=== PATIENT | female | born 1980 | race Caucasian/White ===

== ENCOUNTER 2016-04-02 16:42 | Inpatient (IN) ==
--- NOTE | 2016-04-02 20:20 | General Surg History&Physical ---
Date of Encounter: 04/02/16 Time of Encounter: 20:00 History of Present Illness Chief complaint: Right upper quadrant abdominal pain 3 days; nausea & vomiting HPI: Ms. Henry is a 35 year old female transferred from [facility] after presenting there with a 3 day history right upper quadrant abdominal pain nausea and vomiting. Patient describes progressive pain for which the patient ultimately presented for further evaluation and care. CT completed presentation to the emergency department, showed increased density within the gallbladder and surrounding pericholecystic fluid with fluid in the right paracolic gutter and periportal edema. Findings are highly suspicious for acute cholecystitis prompting a surgical referral at [facility] [place]. Past medical history: thyroid disease Surgical history: , tubal ligation, thyroidectomy Allergies: penicillin Medications: Cyclobenzaprine 10 mg by mouth 3 times a day (prescribed 03/18/16) Meloxicam 7.5 mg by mouth daily (prescribed 03/18/16) Tramadol 50 mg by mouth 4 times a day when necessary pain (prescribed 03/18) These medications appears related to an ED presentation for burning discomfort left flank. This was not associated with any fevers, chills, nausea or vomiting. A CT of the abdomen/pelvis completed at that time was unremarkable. The current CT shows interval changes described above, predominately involving the gallbladder. Social history: G3, P3; every day smoker; [place] history of prescription drug abuse and opiate use Physical examination: overweight, age appropriate pateint in acute distress due to right upper quadrant pain. The patient has been afebrile, 98.3, pulse 88, respirations 18, blood pressure 116/76 Skin is warm, without obvious jaundice Lungs: Clear to auscultation Cardiac: Regular rate, no appreciable murmurs Abdomen: Obese, soft, with tenderness in the right upper quadrant but no discernible intra-abdominal masses. No rebound. Bowel sounds were hypoactive Extremities: No obvious clubbing cyanosis or edema Impression: A 5-year-old female transferred from [facility] after presenting there with 3 day history acute right upper quadrant abdominal pain with N/V. CT showed evidence suggestive acute cholecystitis. White count is 4.8, hemoglobin 15.7 with hematocrit 43.9 (suspected hemoconcentration due to repeat N/V with resultant dehydration). Platelet count 130,000. Sodium 141, potassium 4.4, chloride 102, BUN 20, creatinine 0.71. Estimated GFR greater than 60. Bilirubin 1.0, AST 22,120, ALT 2169, alkaline phosphatase 155; lipase 13 Urinalysis specific gravity greater equal to 1.030; urine protein 100, urine glucose 100, urine ketones 15; microscopic 3-5 RBC and 5 -15 WBC per high powered field. Plan: stat [facility] hepatitis profile for suspected hepatitis v acute cholecystitis NPO, IV fluids, IV ciprofloxacin and pain control for now. Antiemetics prn. Monitor for inappropriate pain medication usage. Past Med Surg Social Fam HX - Past Medical History Medical history: thyroid disease, other Psychiatric history: no psych history - Past Surgical History Surgical History: , thyroidectomy - Social History Smoking Status: Current every day smoker Packs per day: .5 Smokeless Tobacco Status: No Alcohol use: none Drug use: opiates, prescription drug abuse Medications and Allergies Allergies Penicillins [PCN] Allergy (Verified 01/14/16 12:07) Hives Review of Systems All systems PM: A 10-system review of systems was performed and is negative for pertinent findings except as documented above in the HPI. Results - Labs All other labs normal.
[2016-04-02] MEDS: *HR* Promethazine 25 MG/ML VIAL IVP PRN (20:27)
[2016-04-02] MEDS: Nicotine 21 MG PATCH.TD24 TD SCH (20:28)
[2016-04-02] MEDS: *HR* HYDROmorphone (PF) 1 MG/ML SYRINGE IVP PRN (20:28)
[2016-04-02] MEDS: 0.9 % Sodium Chloride 1,000 ML IVC SCH (20:28)
[2016-04-03 01:59] LABS: Hepatitis A Antibody IgM Nonreactive (Nonreactive); Hepatitis B Core IgM Nonreactive (Nonreactive); Hepatitis B Surface Antigen Nonreactive (Nonreactive)
[2016-04-03] MEDS: *HR* Promethazine 25 MG/ML VIAL IVP PRN ×4 (03:03→15:55)
[2016-04-03] MEDS: *HR* HYDROmorphone (PF) 1 MG/ML SYRINGE IVP PRN ×7 (03:03→22:09)
[2016-04-03 03:29] LABS: Hepatitis C Virus Antibody Reactive (Nonreactive)
[2016-04-03 06:04] LABS: Hematocrit 39.7 % (35.3-44.9); Hemoglobin 13.4 g/dL (11.5-15.4); Immature Granulocytes % 0.3 % (0-4); Mean Corpuscular HGB Conc 33.8 g/dL (31.6-35.5); Mean Corpuscular Hemoglobin 28.9 pg (28.0-33.3)
[2016-04-03 06:06] LABS: Basophils # 0.1 K/mcL (0.0-0.2); Basophils % 1.3 %; Eosinophils # 0.1 K/mcL (0.0-0.6); Immature Platelets 11.9 % (1.1-6.1); Lymphocytes # 1.4 K/mcL (0.6-4.6); Lymphocytes % 34.7 %; Mean Corpuscular Volume 85.6 fL (83.0-100.0); Mean Platelet Volume 12.4 fL (9.4-12.4); Monocytes # 0.4 K/mcL (0.0-1.3); Monocytes % 8.9 %; Neutrophils # 2.1 K/mcL (1.6-8.9); Red Blood Count 4.64 M/mcL (3.82-4.97); Red Cell Distribution Width 12.6 % (11.5-14.5); Segmented Neutrophils % 52.8 %
[2016-04-03 06:14] LABS: INR 1.6; Prothrombin Time 17.3 Seconds (9.4-12.1)
[2016-04-03 06:32] LABS: Platelet Count 97 K/mcL (140-400)
[2016-04-03 06:35] LABS: Platelet Estimate Marked Decrease (Normal)
[2016-04-03 06:36] LABS: Reactive Lymphocytes Present (Not Present); Toxic Granulation Present (Not Present); Toxic Vacuolation Present (Not Present)
[2016-04-03 06:38] LABS: Alanine Aminotransferase 2169 Units/L (0-55); Albumin 3.2 g/dL (3.5-5.0); Albumin/Globulin Ratio 1.4 (1.1-2.2); Alkaline Phosphatase 156 Units/L (38-126); Aspartate Amino Transferase 1999 Units/L (5-34); BUN/Creatinine Ratio 38 (6-26); Bilirubin,Total 2.5 mg/dL (0.2-1.2); Blood Urea Nitrogen 20 mg/dL (7-20); Calcium 7.7 mg/dL (8.6-10.8); Carbon Dioxide 24 mEq/L (19-29); Chloride 108 mEq/L (98-109); Globulin 2.3 g/dL (2.4-3.5); Glucose 73 mg/dL (70-99); Osmolality,Calculated 289 (280-300); Potassium 3.5 mEq/L (3.5-4.5); Sodium 139 mEq/L (136-145); Total Protein 5.5 g/dL (6.0-8.3); eGFR For African Americans > 60 (> 60); eGFR For Non-African Americans > 60 (> 60)
[2016-04-03] MEDS: 0.9 % Sodium Chloride 1,000 ML IVC SCH ×2 (07:27→17:13)
[2016-04-03] MEDS: Nicotine 21 MG PATCH.TD24 TD SCH (07:30)
--- NOTE | 2016-04-03 10:35 | General Surgery Progress Note ---
Date of Encounter: 04/03/16 Time of Encounter: 10:27 Subjective Patient reports: still having pain Narrative: Hospital day 1: Patient still complaining of pain; afebrile, 98.4, pulse 58, respirations 18, blood pressure 110/73 CT abdomen and pelvis and ultrasound gallbladder reviewed with [facility] - the findings are consistent with acute hepatitis rather than acute cholecystitis. There was no evidence of gallstones and periportal edema is noted. The pericholecystic fluid is likely due to the inflamed liver with extension to the right paracolic gutter as noted on CT. Laboratories: White count 3.9, hemoglobin 13.4, hematocrit 39.7. ( Hemoglobin and hematocrit decreased from 15.7/43.9 in response to hydration) Electrolytes BUN and creatinine remain within normal limits; total bilirubin has increased to 2.5, AST is 1999, ALT 2169, alkaline phosphatase 156. PT/INR 17.3 and 1.6; platelet count 97,000 Operatory findings are consistent with acute hepatic disease. On physical examination the patient is slightly more comfortable; abdominal discomfort is diminished compared to her admission. Lungs were clear to auscultation Cardiac: Regular rate, no audible murmurs Abdomen: Tender in the right upper quadrant but as noted, less tenderness than on admission. No detected hepatosplenomegaly. Hepatitis profile shows elevated hepatitis C titer Impression: Acute hepatitis with resultant thrombocytopenia and hyper bilirubinemia. The elevated PT/INR is also consistent with acute liver disease. Plan: Cancel any surgical intervention (cholecystectomy) Consult Hospitalist Service for management acute hepatitis - likely hepatitis C. Discussed with Dr Pulliam Objective Vital Signs - Last 8 Hours Temp Pulse Resp BP Pulse Ox 04/03/16 07:16 98.4 F 58 18 110/73 96 04/03/16 03:57 97.7 F 61 18 115/70 96 Intake and Output 04/02/16 04/03/16 04/03/16 23:59 07:59 15:59 Intake Total 0 / 0 1200 / 1200 Output Total 0 / 0 500 / 500 Balance 0 / 0 700 / 700 Intake: IV Fluids 1200 / 1200 0.9 % Sodium Chloride 1, 1000 / 1000 000 ML @ 100 mls/hr IVC . Q10H JUSTEN Rx#:[id number] Cipro 400 MG/200 ML 400 200 / 200 mg In 200 ml @ 200 mls/hr IVPB Q12HR JUSTEN Rx#: [id number] Oral 0 / 0 0 / 0 Output: Urine 0 / 0 500 / 500 Other: Weight 80.014 kg Blood Glucose* 90 - Labs 04/03/16 05:26 04/03/16 05:26 Diabetes panel 04/03/16 Range/Units 05:26 Sodium 139 (136-145) mEq/L Potassium 3.5 (3.5-4.5) mEq/L Chloride 108 (98-109) mEq/L Carbon Dioxide 24 (19-29) mEq/L BUN 20 (7-20) mg/dL Creatinine 0.52 L (0.57-1.11) mg/dL Glucose 73 (70-99) mg/dL Calcium 7.7 L (8.6-10.8) mg/dL AST 1999 H (5-34) Units/L ALT 2169 H (0-55) Units/L Alkaline Phosphatase 156 H (38-126) Units/L Albumin 3.2 L (3.5-5.0) g/dL Calcium panel 04/03/16 Range/Units 05:26 Calcium 7.7 L (8.6-10.8) mg/dL Albumin 3.2 L (3.5-5.0) g/dL Pituitary panel 04/03/16 Range/Units 05:26 Sodium 139 (136-145) mEq/L Potassium 3.5 (3.5-4.5) mEq/L Chloride 108 (98-109) mEq/L Carbon Dioxide 24 (19-29) mEq/L BUN 20 (7-20) mg/dL Creatinine 0.52 L (0.57-1.11) mg/dL Glucose 73 (70-99) mg/dL Calcium 7.7 L (8.6-10.8) mg/dL Adrenal panel 04/03/16 Range/Units 05:26 Sodium 139 (136-145) mEq/L Potassium 3.5 (3.5-4.5) mEq/L Chloride 108 (98-109) mEq/L Carbon Dioxide 24 (19-29) mEq/L BUN 20 (7-20) mg/dL Creatinine 0.52 L (0.57-1.11) mg/dL Glucose 73 (70-99) mg/dL Calcium 7.7 L (8.6-10.8) mg/dL Total Bilirubin 2.5 H D (0.2-1.2) mg/dL AST 1999 H (5-34) Units/L ALT 2169 H (0-55) Units/L Alkaline Phosphatase 156 H (38-126) Units/L Albumin 3.2 L (3.5-5.0) g/dL Consult Discharge Plan - Plan Referrals: NO,PCP [Primary Care Provider] -
--- NOTE | 2016-04-03 11:00 | Internal Medicine Consult Note ---
Date of Encounter: 04/03/16 Time of Encounter: 10:15 - Assessment and Plan (1) Abdominal pain Current Visit: Yes Status: Acute Assessment and plan: Patient presents with right upper quadrant abdominal pain associated with nausea and vomiting for the past 3 days. Right upper quadrant ultrasound shows gallbladder wall thickening, small volume of pericholecystic fluid, no gallstones, distended proximal common duct. CT of the abdomen and pelvis revealed increased density seen within the gallbladder with pericholecystic fluid, periportal edema. Significant elevation of AST and ALT in the range of 2000 as well as total bilirubin of 2.5 and alkaline phosphatase of 156. Hepatitis panel was positive for hepatitis C. Abdominal pain is likely secondary to acute hepatitis from hepatitis C virus infection. However, given history of Percocet abuse, I will order acetaminophen level, and salicylate level. No signs of acute encephalopathy to indicate acute liver failure. We will close monitoring her neurologic status given an elevated INR of 1.6. Patient also has chronic findings of liver disease including thrombocytopenia, elevated INR and low albumin level. check LDH, ggt, HCV viral load, HIV, rpr, chlamydia, gonorrhea and urine drug screen. check MRCP given dilatation of proximal CBD. Qualifiers: Abdominal location: right upper quadrant Qualified Code(s): R10.11 - Right upper quadrant pain (2) Elevated LFTs Current Visit: Yes Status: Acute Assessment and plan: plan as above. (3) Acute hepatitis Current Visit: Yes Status: Acute Assessment and plan: likely from acute HCV infection. close monitor of neurologic status, inr and lft. continue supportive therapy with iv fluids. no need for antibiotics at this time. (4) Dilated cbd, acquired Current Visit: Yes Status: Acute Assessment and plan: plan as above (5) Prolonged INR Current Visit: Yes Status: Acute Assessment and plan: plan as above. daily monitor (6) Thrombocytopenia Current Visit: Yes Status: Acute Assessment and plan: secondary to acute hepatitis.plan as above. no signs of bleeding. close monitor. (7) HCV infection Current Visit: Yes Status: Acute Assessment and plan: new diagnosis. patient at risk given history of IVDA. check viral load. Qualifiers: Viral hepatitis chronicity: acute Hepatic coma status: without hepatic coma Qualified Code(s): B17.10 - Acute hepatitis C without hepatic coma (8) Drug use Current Visit: Yes Status: Acute Assessment and plan: counseled to quit, she agrees. she already quit heroin 1 month ago. she still snorts pain pills daily (percocet 10) Internal Medicine - CN: HPI - Data of Consult Patient: new to practice Consult date: 04/03/16 Requesting Physician: Lance Riley - Consult Narrative Reason for consult: acute hepatitis History of present illness: Ms. Henry is a 35 year old female with past medical history of thyroid mass s/p right lobe thyroidectomy and drug user (she snorts percocet every day 10 mg pill , and has used heroin but last time was 1 month ago). 3 days ago, she developed right sided abdominal pain with nausea and vomiting. no bleeding. no confusion. no pain. No shortness of breath. No chills. No fever. No palpitations. No night sweats. No abdominal distention. No urinary complaints. No lower extremity edema. She admits taking a lot ibuprofen for headaches every day for a long time. Yesterday evening, patient presented to [facility] and was diagnosed of acute cholecystitis. She was transferred to our hospital under the care of the surgery service, Dr. Riley. He further assess the patient and diagnosed her with acute hepatitis and HCV infection. Our hospitalist service has been consulted for for diminishment of acute hepatitis and HCV infection. Past Med Surg Social Fam HX - Past Medical History Medical history: thyroid disease, other Psychiatric history: no psych history - Past Surgical History Surgical History: , thyroidectomy - Social History Smoking Status: Current every day smoker Packs per day: .5 Smokeless Tobacco Status: No Alcohol use: none Drug use: opiates, prescription drug abuse - Family History Maternal Name: cousin has HCV infection . She is also a drug user. All systems: reviewed and no additional remarkable complaints except as stated Internal Medicine - CN: Meds Allergies Penicillins [PCN] Allergy (Verified 01/14/16 12:07) Hives Internal Medicine - CN: Exam - Constitutional Vitals: Temp Pulse Resp BP Pulse Ox 98.4 F 58 18 110/73 96 04/03/16 07:16 04/03/16 07:16 04/03/16 07:16 04/03/16 07:16 04/03/16 07:16 General appearance IM: Present: cooperative, A&O X 3, pleasant, no acute distress, answers questions appropriately - Head Head exam: Present: atraumatic - Eye Eye exam: Present: PERRL, scleral icterus - ENT ENT exam: Present: mucous membranes dry - Neck Neck exam general surgery: Present: supple, trachea midline. Absent: lymphadenopathy - Respiratory Respiratory exam: Present: CTAB - Cardiovascular Cardiovascular exam IM: Present: RRR - GI/Abdominal GI/Abdominal exam IM: Present: normal bowel sounds, soft. Absent: distended, tenderness - Extremities Exam Extremities exam IM: Present: radial pulses palpable and symetrical. Absent: cyanotic, joint swelling, pedal edema, tenderness - Back Exam Back exam: Absent: CVA tenderness (L), CVA tenderness (R) - Neurological Exam Neurological exam: Present: alert, oriented X3. Absent: pronater drift, speech deficit Additional comments: No asterixis. - Skin Skin exam IM: Absent: rash (Jaundice.) Internal Medicine - CN: Reslt - Labs CBC & Chem 7: 04/03/16 05:26 04/03/16 05:26 Labs: Short CBC 04/03/16 Range/Units 05:26 WBC 3.9 L (4.3-11.1) K/mcL Hgb 13.4 D (11.5-15.4) g/dL Hct 39.7 (35.3-44.9) % Plt Count 97 L (140-400) K/mcL Neutrophils # 2.1 (1.6-8.9) K/mcL BMP 04/03/16 05:26 Sodium 139 Potassium 3.5 Chloride 108 Carbon Dioxide 24 BUN 20 Creatinine 0.52 L Glucose 73 Calcium 7.7 L Liver Function 04/03/16 Range/Units 05:26 Total Bilirubin 2.5 H D (0.2-1.2) mg/dL AST 1999 H (5-34) Units/L ALT 2169 H (0-55) Units/L Alkaline Phosphatase 156 H (38-126) Units/L Albumin 3.2 L (3.5-5.0) g/dL - ABG Interpretation ABG results: PT/INR, D-dimer PT 17.3 Seconds (9.4-12.1) H 04/03/16 05:26 - Impressions Impressions Gallbladder Ultrasound 04/02/16 18:44 IMPRESSION: Gallbladder wall thickening and possible small volume of pericholecystic fluid. No gallstones and absent sonographic Cid's sign. These findings are equivocal for acute cholecystitis. Further evaluation could be obtained with nuclear medicine HIDA scan. Distended proximal common duct raising the possibility of distal obstruction. Further evaluation could be obtained with MRCP or ERCP. D/ / Lazaro Hu MD / Lazaro Hu MD Interpreting Provider: Lazaro Hu MD Consult Discharge Plan - Plan Referrals: NO,PCP [Primary Care Provider] -
[2016-04-03 11:54] LABS: Acetaminophen < 1.0 mcg/mL (10-30); Lactate Dehydrogenase 888 Units/L (159-327); Salicylate < 5.0 mg/dL (15-30)
[2016-04-03 12:06] LABS: Gamma Glutamyl Transpeptidase 262 Units/L (9-36)
[2016-04-03] MEDS: Ondansetron ODT 4 MG TAB.RAPDIS SL PRN (19:50)
[2016-04-03 20:14] LABS: Amphetamine Screen,Urine Negative ng/mL (Cutoff=1000); Barbiturate Screen,Urine Negative ng/mL (Cutoff=200); Benzodiazepines Screen,Urine Negative ng/mL (Cutoff=200); Cannabinoid Screen,Urine Positive ng/mL (Cutoff = 50); Cocaine Screen,Urine Negative ng/mL (Cutoff= 300); Opiate Screen,Urine Positive ng/mL (Cutoff=300); Phencyclidine Screen,Urine Negative ng/mL (Cutoff=25)
[2016-04-03] MEDS ORDERED: Nicotine 21 MG PATCH.TD24 TD ONE (21:30)
[2016-04-04] MEDS: *HR* HYDROmorphone (PF) 1 MG/ML SYRINGE IVP PRN ×8 (00:44→23:23)
[2016-04-04] MEDS: Ondansetron ODT 4 MG TAB.RAPDIS SL PRN ×2 (00:44→13:29)
[2016-04-04] MEDS: 0.9 % Sodium Chloride 1,000 ML IVC SCH ×2 (05:28→15:43)
[2016-04-04 06:02] LABS: INR 1.8; Prothrombin Time 19.8 Seconds (9.4-12.1)
[2016-04-04 06:23] LABS: Albumin 2.7 g/dL (3.5-5.0); Albumin/Globulin Ratio 1.3 (1.1-2.2); Bilirubin,Direct 2.6 mg/dL (0.0-0.5); Bilirubin,Indirect 0.8 mg/dL (0.0-1.2); Globulin 2.1 g/dL (2.4-3.5); Total Protein 4.8 g/dL (6.0-8.3)
[2016-04-04 06:25] LABS: Bilirubin,Total 3.4 mg/dL (0.2-1.2)
[2016-04-04] MEDS: Nicotine 21 MG PATCH.TD24 TD SCH (09:18)
[2016-04-04] MEDS: *HR* Promethazine 25 MG/ML VIAL IVP PRN ×2 (09:19→18:48)
--- NOTE | 2016-04-04 10:28 | Internal Med Progress Note ---
<Henrique Duke - Last Filed: 04/04/16 10:25> Date of Encounter: 04/04/16 Time of Encounter: 10:25 - Assessment and plan (1) Elevated transaminase level Current Visit: Yes Status: Acute Assessment and plan: Etiology at this time is still uncertain. However given recent IV drug abuse and positive Hepatitis C antibodies would suspect acute hepatitis C infection. MRCP dose not reveal signs of obstruction. Viral load and genotype ordered and pending. Tylenol level was undetectable. No thrombosis seen on US. GI was consulted. Will follow up with lab results. Will likely need outpatient treatment for hepatitis C after 12 weeks. (2) RUQ pain Current Visit: Yes Status: Acute Assessment and plan: as stated above. pain is currently well controlled. (3) Hepatitis C antibody positive in blood Current Visit: Yes Status: Acute Assessment and plan: as stated above (4) Splenomegaly Current Visit: Yes Status: Acute Assessment and plan: mildly enlarged spleen. Possibly from hepatitis. However with splenomegally and no history of Cirrhosis would also consider EBV and CMV. (5) Leukopenia Current Visit: Yes Status: Acute Assessment and plan: likely from acute viral infection. continue to trend (6) Thrombocytopenia Current Visit: Yes Status: Acute Assessment and plan: likely from splenomegally. continue to follow (7) Coagulopathy Current Visit: Yes Status: Acute Assessment and plan: etiology unclear. Possibly from liver dysfunction. However may also consider vitamin K deficiency as well. We will consider a trial of vitamin K. (8) Hyperbilirubinemia Current Visit: Yes Status: Acute Assessment and plan: continue to monitor. No overt jaundice on todays exam. (9) DVT prophylaxis Current Visit: Yes Status: Acute Assessment and plan: EPCDS - Subjective Interval history: Mrs. Henry is a 35 y.o. female who was admitted to [facility] for suspected acute cholecystitis. However US of the Gallbladder was equivocal for Acute cholecystitis. there was also possibly some Dialation of the CBD. An MRCP was ordered and did not show any cigns of obstruction. CBD was 6mm. Today The patient states that she had onset of symptoms Saturday morning when she woke. She stated she felt like she had the flu with Malaise , Nausea and emesis. She later developed RUQ pain. She denies any ETOH consumption for the past 2 years. Denies tylenol use but dose state she takes occasional percocet form friends. She denies any recent travel. She dose have a child that is young / preschooll age. She has had no recent travel. No recent ingestion of herbal substances. She admits to IV drug abuse. Last time was 21 days ago with a mix of regular and black tar heroin. She denies having shared needles. She has sevberal tattoos but states none of them are new. She denies family history of liver disease. She denies any history of autoiummune disease in herself or in her family. today she dose compain of RUQ pain which is moderate and tolerable. She denies any radiation, jaundice or prurtitis. She has no further complaints at this time. - Constitutional Vitals: Temp Pulse Resp BP Pulse Ox 97.7 F 69 16 108/72 98 04/04/16 07:27 04/04/16 07:27 04/04/16 07:27 04/04/16 07:27 04/04/16 07:27 General appearance: Present: cooperative, A&O X 3, pleasant, no acute distress, answers questions appropriately - Head Head exam: Present: atraumatic, normocephalic - Eye Eye exam: Present: PERRL, conjuntiva pink, sclera anicteric Pupils: Present: PERRL - ENT ENT exam: Present: mucous membranes moist - Neck Neck exam general surgery: Present: supple, trachea midline. Absent: lymphadenopathy - Respiratory Respiratory exam: Present: CTAB. Absent: accessory muscle use, rales, rhonchi, wheezes - Cardiovascular Cardiovascular exam: Present: RRR, +S1, +S2. Absent: diastolic murmur, gallop, rubs, systolic murmur - GI/Abdominal GI/Abdominal exam: Present: hepatomegaly, splenomegaly, tenderness (RUQ). Absent: distended, firm, guarding, hernia, mass - Extremities Exam Extremities exam: Present: warm, radial pulses palpable and symetrical. Absent : calf tenderness, cyanotic, pedal edema - Skin Skin exam: Present: dry, intact Additional comments: several tattoos present. Internal Medicine: Result - Labs CBC & Chem 7: 04/03/16 05:26 04/03/16 05:26 Labs: Liver Function 04/03/16 04/04/16 Range/Units 11:31 05:32 Total Bilirubin 3.4 H (0.2-1.2) mg/dL Direct Bilirubin 2.6 H (0.0-0.5) mg/dL GGT 262 H (9-36) Units/L AST 1048 H (5-34) Units/L ALT 1810 H (0-55) Units/L Alkaline Phosphatase 187 H (38-126) Units/L Albumin 2.7 L (3.5-5.0) g/dL - ABG Interpretation ABG results: PT/INR, D-dimer PT 19.8 Seconds (9.4-12.1) H 04/04/16 05:32 - Impressions Impressions Abdomen MRI 04/03/16 10:58 IMPRESSION: Gallbladder is edematous and prominently thickened measuring up to 1.1 cm. No filling defects noted within the gallbladder or common bile duct to suggest cholelithiasis or choledocholithiasis. Common bile duct is minimally prominent measuring up to 6 mm. No intrahepatic or pancreatic duct dilatation. Findings likely represent acalculous cholecystitis. Small amount of free fluid within the upper abdomen predominately in the right upper quadrant. Small bilateral pleural effusions. Spleen is mildly enlarged measuring up to 13.2 cm. D/ / Kenna Burns MD / Kenna Burns MD Interpreting Provider: Kenna Burns MD Abdomen/Pelvis Ultrasound 04/03/16 19:00 IMPRESSION: No evidence of portal vein thrombosis. D/ / 04/03/2016 21:45:07 Jacob Sims MD / john Interpreting Provider: Jacob Sims MD Consult Discharge Plan - Plan Referrals: NO,PCP [Primary Care Provider] - <Chevy Ham H - Last Filed: 04/04/16 11:42> Date of Encounter: 04/04/16 - Constitutional Vitals: Temp Pulse Resp BP Pulse Ox 97.8 F 75 16 104/69 94 L 04/04/16 11:00 04/04/16 11:00 04/04/16 11:00 04/04/16 11:00 04/04/16 11:00 Internal Medicine: Result - Labs CBC & Chem 7: 04/04/16 10:47 04/03/16 05:26 Labs: Short CBC 04/04/16 Range/Units 10:47 WBC 5.7 (4.3-11.1) K/mcL Hgb 14.0 (11.5-15.4) g/dL Hct 40.1 (35.3-44.9) % Plt Count 115 L (140-400) K/mcL Neutrophils # 2.1 (1.6-8.9) K/mcL Liver Function 04/03/16 04/04/16 Range/Units 11:31 05:32 Total Bilirubin 3.4 H (0.2-1.2) mg/dL Direct Bilirubin 2.6 H (0.0-0.5) mg/dL GGT 262 H (9-36) Units/L AST 1048 H (5-34) Units/L ALT 1810 H (0-55) Units/L Alkaline Phosphatase 187 H (38-126) Units/L Albumin 2.7 L (3.5-5.0) g/dL - ABG Interpretation ABG results: PT/INR, D-dimer PT 19.8 Seconds (9.4-12.1) H 04/04/16 05:32 - Impressions Impressions Abdomen MRI 04/03/16 10:58 IMPRESSION: Gallbladder is edematous and prominently thickened measuring up to 1.1 cm. No filling defects noted within the gallbladder or common bile duct to suggest cholelithiasis or choledocholithiasis. Common bile duct is minimally prominent measuring up to 6 mm. No intrahepatic or pancreatic duct dilatation. Findings likely represent acalculous cholecystitis. Small amount of free fluid within the upper abdomen predominately in the right upper quadrant. Small bilateral pleural effusions. Spleen is mildly enlarged measuring up to 13.2 cm. D/ / Kenna Burns MD / Kenna Burns MD Interpreting Provider: Kenna Burns MD Abdomen/Pelvis Ultrasound 04/03/16 19:00 IMPRESSION: No evidence of portal vein thrombosis. D/ / 04/03/2016 21:45:07 Jacob Sims MD / john Interpreting Provider: Jacob Sims MD - Attending Attestation await genotyping for Hep C if improved may be discharged in the morning to follow up as out patient I examined this patient and my medical decision-making was reviewed with the DESIGN SUPERVISOR/PA/Advanced Practice Nurse/Resident Physician. I agree with the documented findings, disposition and treatment plan as described except to the extent set forth below.
[2016-04-04 11:00] LABS: Basophils % 0.5 %; Eosinophils # 0.1 K/mcL (0.0-0.6); Eosinophils % 1.4 %; Hematocrit 40.1 % (35.3-44.9); Immature Granulocytes % 0.4 % (0-4); Lymphocytes # 3.1 K/mcL (0.6-4.6); Lymphocytes % 54.5 %; Mean Corpuscular HGB Conc 34.9 g/dL (31.6-35.5); Mean Corpuscular Hemoglobin 29.6 pg (28.0-33.3); Mean Corpuscular Volume 84.8 fL (83.0-100.0); Mean Platelet Volume 12.4 fL (9.4-12.4); Monocytes # 0.4 K/mcL (0.0-1.3); Monocytes % 7.3 %; Platelet Count 115 K/mcL (140-400); Red Blood Count 4.73 M/mcL (3.82-4.97); Red Cell Distribution Width 12.8 % (11.5-14.5); Segmented Neutrophils % 35.9 %
[2016-04-04 11:02] LABS: Neutrophils # 2.1 K/mcL (1.6-8.9)
[2016-04-05] MEDS: 0.9 % Sodium Chloride 1,000 ML IVC SCH ×2 (03:27→11:49)
[2016-04-05] MEDS: *HR* HYDROmorphone (PF) 1 MG/ML SYRINGE IVP PRN ×2 (05:06→09:19)
[2016-04-05 06:40] LABS: Hemoglobin 13.5 g/dL (11.5-15.4); Mean Corpuscular HGB Conc 34.6 g/dL (31.6-35.5); Mean Corpuscular Hemoglobin 29.5 pg (28.0-33.3); Mean Corpuscular Volume 85.3 fL (83.0-100.0); Mean Platelet Volume 12.8 fL (9.4-12.4); Platelet Count 102 K/mcL (140-400); Red Blood Count 4.57 M/mcL (3.82-4.97); Red Cell Distribution Width 13.2 % (11.5-14.5)
[2016-04-05 06:57] LABS: Alanine Aminotransferase 1383 Units/L (0-55); Albumin 2.6 g/dL (3.5-5.0); Albumin/Globulin Ratio 1.2 (1.1-2.2); Alkaline Phosphatase 183 Units/L (38-126); Aspartate Amino Transferase 743 Units/L (5-34); BUN/Creatinine Ratio 19 (6-26); Bilirubin,Total 3.9 mg/dL (0.2-1.2); Blood Urea Nitrogen 10 mg/dL (7-20); Calcium 7.8 mg/dL (8.6-10.8); Carbon Dioxide 23 mEq/L (19-29); Chloride 110 mEq/L (98-109); Globulin 2.1 g/dL (2.4-3.5); Glucose 119 mg/dL (70-99); Osmolality,Calculated 288 (280-300); Potassium 3.4 mEq/L (3.5-4.5); Sodium 139 mEq/L (136-145); Total Protein 4.7 g/dL (6.0-8.3); eGFR For African Americans > 60 (> 60); eGFR For Non-African Americans > 60 (> 60)
[2016-04-05] MEDS ORDERED: Potassium Chloride Elixir 20 MEQ/15 ML UDC PO ONE (08:36)
[2016-04-05] MEDS: Nicotine 21 MG PATCH.TD24 TD SCH (09:02)
[2016-04-05] MEDS: Ondansetron ODT 4 MG TAB.RAPDIS SL PRN (09:19)
[2016-04-05 10:03] LABS: Basophils # 0.1 K/mcL (0.0-0.2); Eosinophils # 0.2 K/mcL (0.0-0.6); Lymphocytes # 2.6 K/mcL (0.6-4.6); Monocytes # 0.3 K/mcL (0.0-1.3); Reactive Lymphocytes Present (Not Present)
[2016-04-05 10:04] LABS: Platelet Estimate Decreased (Normal)
--- NOTE | 2016-04-05 10:09 | Discharge Summary ---
Date of Encounter: 04/05/16 Time of Encounter: 10:06 - Discharge Diagnosis (1) Elevated transaminase level Priority: Primary Status: Acute (2) RUQ pain Priority: Secondary Status: Acute (3) Hepatitis C antibody positive in blood Priority: Secondary Status: Acute (4) Splenomegaly Priority: Secondary Status: Acute (5) Leukopenia Priority: Secondary Status: Acute (6) Thrombocytopenia Priority: Secondary Status: Acute (7) Coagulopathy Priority: Secondary Status: Acute (8) Hyperbilirubinemia Priority: Secondary Status: Acute (9) DVT prophylaxis Priority: Secondary Status: Acute - Discharge Medications Prescriptions: Nicotine Patch [Nicoderm] 21 mg TD DAILY 30 Days Ondansetron HCl [Zofran] 4 mg PO Q8H #21 tablet Home Medications: Nicotine Patch [Nicoderm] 21 mg TD DAILY 30 Days 04/05/16 [Rx] Ondansetron HCl [Zofran] 4 mg PO Q8H #21 tablet 04/05/16 [Rx] Allergies/Adverse Reactions: Allergies Penicillins [PCN] Allergy (Verified 04/03/16 13:10) Hives Labs on day of discharge: Labs from last 24 hours 04/05/16 04/05/16 04/04/16 05:57 05:57 10:47 WBC 5.2 RBC 4.57 Hgb 13.5 Hct 39.0 MCV 85.3 MCH 29.5 MCHC 34.6 RDW 13.2 Plt Count 102 L MPV 12.8 H Immature Gran % Seg Neutrophils % 38.0 Lymphocytes % 50.0 Monocytes % 6.0 Eosinophils % 4.0 Basophils % 2.0 Neutrophils # 2.0 Lymphocytes # 2.6 Monocytes # 0.3 Eosinophils # 0.2 Basophils # 0.1 Reactive Lymphocytes Present A Platelet Estimate Decreased L Sodium 139 Potassium 3.4 L Chloride 110 H Carbon Dioxide 23 BUN 10 D Creatinine 0.52 L Est GFR ( Amer) > 60 Est GFR (Non-Af Amer) > 60 BUN/Creatinine Ratio 19 Glucose 119 H Calculated Osmolality 288 Calcium 7.8 L Total Bilirubin 3.9 H Direct Bilirubin 3.0 H AST 743 H ALT 1383 H Alkaline Phosphatase 183 H Serum Total Protein 4.7 L Albumin 2.6 L Globulin 2.1 L Albumin/Globulin Ratio 1.2 T.pallidum Ab Interpret EBV Capsid Ag IgM Ab Negative HIV Ag/Ab Combo Qual 04/04/16 04/03/16 04/03/16 10:47 11:46 11:46 WBC 5.7 RBC 4.73 Hgb 14.0 Hct 40.1 MCV 84.8 MCH 29.6 MCHC 34.9 RDW 12.8 Plt Count 115 L MPV 12.4 Immature Gran % 0.4 Seg Neutrophils % 35.9 Lymphocytes % 54.5 Monocytes % 7.3 Eosinophils % 1.4 Basophils % 0.5 Neutrophils # 2.1 Lymphocytes # 3.1 Monocytes # 0.4 Eosinophils # 0.1 Basophils # 0.0 Reactive Lymphocytes Platelet Estimate Sodium Potassium Chloride Carbon Dioxide BUN Creatinine Est GFR ( Amer) Est GFR (Non-Af Amer) BUN/Creatinine Ratio Glucose Calculated Osmolality Calcium Total Bilirubin Direct Bilirubin AST ALT Alkaline Phosphatase Serum Total Protein Albumin Globulin Albumin/Globulin Ratio T.pallidum Ab Interpret NEGATIVE EBV Capsid Ag IgM Ab HIV Ag/Ab Combo Qual Nonreactive - Impressions ITS Impressions Gallbladder Ultrasound 04/02/16 18:44 IMPRESSION: Gallbladder wall thickening and possible small volume of pericholecystic fluid. No gallstones and absent sonographic Cid's sign. These findings are equivocal for acute cholecystitis. Further evaluation could be obtained with nuclear medicine HIDA scan. Distended proximal common duct raising the possibility of distal obstruction. Further evaluation could be obtained with MRCP or ERCP. D/ / Lazaro Hu MD / Lazaro Hu MD Interpreting Provider: Lazaro Hu MD Abdomen MRI 04/03/16 10:58 IMPRESSION: Gallbladder is edematous and prominently thickened measuring up to 1.1 cm. No filling defects noted within the gallbladder or common bile duct to suggest cholelithiasis or choledocholithiasis. Common bile duct is minimally prominent measuring up to 6 mm. No intrahepatic or pancreatic duct dilatation. Findings likely represent acalculous cholecystitis. Small amount of free fluid within the upper abdomen predominately in the right upper quadrant. Small bilateral pleural effusions. Spleen is mildly enlarged measuring up to 13.2 cm. D/ / Kenna Burns MD / Kenna Burns MD Interpreting Provider: Kenna Burns MD Abdomen/Pelvis Ultrasound 04/03/16 19:00 IMPRESSION: No evidence of portal vein thrombosis. D/ / 04/03/2016 21:45:07 Jacob Sims MD / john Interpreting Provider: Jacob Sims MD Date of admission: 04/03/16 15:09 Primary care physician: PCP NO Consults: 04/03/16 10:26 Consult to Hospitalist [CONS] Routine Consulting Provider: Hospitalist Patti Reason for Consult: acute hepatitis Time Notified: 10:20 Call Completed: Yes 04/04/16 09:59 Consult to Public Relations Senior Associate [CONS] Routine Reason for SW Consult: financial needs Discharging clinician: Henrique Duke Anticipated date of discharge: 04/05/16 - Discharge Instructions Follow Up With: Analilia James THERMAL INTELLIGENCE ANALYST [Advanced Practice Nurse] - 04/11/16 2:45 pm - Hospital Course Hospital course: Ms. Henry is a 35 year old female who was admitted for RUQ pain and suspected acute cholecstitis versus acute hepatitis. She was evaluated by general Surgery and had US of the Gallbladder which did not suggest acute cholecystitis. She did tet positive for Hepatitis C. Her AST and ALT were markedly elevated upon admission. She has improved significantly. She has had resolution of her N/V and is tolerating a diet now. Her LFTs have also trended down significantly. I discussed in detail the natural course of Hepatitis C. She will need to be tested again in 3 months to see if she has cleared the infection on her own. If not antiviral therapy should be considered. At this time her viral load and genotype are pending. We will discharge her today as she is medically stable and has had marked improvement. She will follow up closely with the Residency [facility] as she dose not currently have a PCP. She has voiced back understanding and agreement to the above plan. Time spent discussing smoking cessation with patient: 3 to 10 minutes - Time Spent with Patient Total time spent providing and/or coordinating discharge services: Greater than 30 minutes (Approximately 40 minutes) Physical Examination Vital Signs: Vital Signs, Last 4 Hours Temp Pulse Resp BP Pulse Ox 04/05/16 07:33 98.0 F 66 16 115/79 96 General appearance: no acute distress Eyes: nonicteric ENT: oropharynx moist Neck: supple Effort: normal Inspection: normal Auscultation: bilateral: clear Percussion: bilateral: not dull Tactile fremitus: bilateral: normal Cardiovascular: regular rate and rhythm Gastrointestinal: normoactive bowel sounds, non-distended Integumentary: normal Extremities: no cyanosis, no edema, no clubbing Musculoskeletal: no deformities, ROM normal normal mental status, non-focal exam mood appropriate, affect normal
--- NOTE | 2016-04-05 10:25 | Discharge Summary ---
<Henrique Duke - Last Filed: 04/05/16 10:23> Date of Encounter: 04/05/16 Time of Encounter: 10:23 - Discharge Diagnosis (1) Elevated transaminase level Priority: Primary Status: Acute (2) RUQ pain Priority: Secondary Status: Acute (3) Hepatitis C antibody positive in blood Priority: Secondary Status: Acute (4) Splenomegaly Priority: Secondary Status: Acute (5) Leukopenia Priority: Secondary Status: Acute (6) Thrombocytopenia Priority: Secondary Status: Acute (7) Coagulopathy Priority: Secondary Status: Acute (8) Hyperbilirubinemia Priority: Secondary Status: Acute (9) DVT prophylaxis Priority: Secondary Status: Acute - Discharge Medications Prescriptions: Nicotine Patch [Nicoderm] 21 mg TD DAILY 30 Days Ondansetron HCl [Zofran] 4 mg PO Q8H #21 tablet Home Medications: Nicotine Patch [Nicoderm] 21 mg TD DAILY 30 Days 04/05/16 [Rx] Ondansetron HCl [Zofran] 4 mg PO Q8H #21 tablet 04/05/16 [Rx] Allergies/Adverse Reactions: Allergies Penicillins [PCN] Allergy (Verified 04/03/16 13:10) Hives Procedures/tests Complete & Pending: Procedures Performed prior 72 hours Category Date Time Status US gall bladder [US] Stat Exams 04/02/16 18:44 Completed MRCP [MR abdomen wo con] [MR] Routine MRI 04/03/16 10:58 Completed US abd pelvis doppler [US] Routine Ultrasound 04/03/16 19:00 Completed Date of admission: 04/03/16 15:09 Primary care physician: PCP NO Consults: 04/03/16 10:26 Consult to Hospitalist [CONS] Routine Consulting Provider: Adryan Armstrong Reason for Consult: acute hepatitis Time Notified: 10:20 Call Completed: Yes 04/04/16 09:59 Consult to Enrollment Eligibility Representative [CONS] Routine Reason for SW Consult: financial needs Discharging clinician: Henrique Duke Anticipated date of discharge: 04/05/16 - Patient Status Disposition: Home, Self-Care Condition: Good Functional capacity at discharge: independent ambulation Overall status at discharge: patient is progressing back to baseline - Ambulatory Orders Ambulatory Orders: Bilirubin, Total And Fractions [CHEM] Time Frame: 3 Days, Location: any lab Comprehensive Metabolic Panel [CHEM] Time Frame: 3 Days, Location: Any lab Prothrombin Time INR [COAG] Time Frame: 3 Days, Location: Any lab - Discharge Instructions Follow Up With: Analilia James CNP [Advanced Practice Nurse] - 04/11/16 2:45 pm Additional Instructions: follow up with the [facility] within 7 days. take medications as prescribed. Return to the ED or call your PCP should you develop worsening abdominal pain, worsening yellowing of the skin, or fever. - Diet and Activity Activity: increase activity as tolerated Diet: advance to your usual diet Hospital course: Ms. Henry is a 35 year old female who was admitted for RUQ pain and suspected acute cholecystitis versus acute hepatitis. She was evaluated by general Surgery and had US of the Gallbladder which did not suggest acute cholecystitis. She did tet positive for Hepatitis C. Her AST and ALT were markedly elevated upon admission. She has improved significantly. She has had resolution of her N/V and is tolerating a diet now. Her LFTs have also trended down significantly. I discussed in detail the natural course of Hepatitis C. She will need to be tested again in 3 months to see if she has cleared the infection on her own. If not antiviral therapy should be considered. At this time her viral load and genotype are pending. We will discharge her today as she is medically stable and has had marked improvement. She will follow up closely with the Residency clinic as she dose not currently have a PCP. She has voiced back understanding and agreement to the above plan. Time spent discussing smoking cessation with patient: 3 to 10 minutes - Time Spent with Patient Total time spent providing and/or coordinating discharge services: Greater than 30 minutes (approximately 40 minutes) - Constitutional Vitals: Temp Pulse Resp BP Pulse Ox 98.0 F 66 16 115/79 96 04/05/16 07:33 04/05/16 07:33 04/05/16 07:33 04/05/16 07:33 04/05/16 07:33 General appearance: Present: cooperative, A&O X 3, pleasant, no acute distress, answers questions appropriately - Head Head exam: Present: atraumatic, normocephalic - Eye Eye exam: Present: PERRL, conjuntiva pink, sclera anicteric Pupils: Present: PERRL - Neck Neck exam general surgery: Present: supple, trachea midline. Absent: lymphadenopathy - Respiratory Respiratory exam: Present: CTAB. Absent: accessory muscle use, rales, rhonchi, wheezes - Cardiovascular Cardiovascular exam: Present: RRR, +S1, +S2. Absent: diastolic murmur, gallop, rubs, systolic murmur - GI/Abdominal GI/Abdominal exam: Present: normal bowel sounds, soft, tenderness (mild RUQ), no peritoneal signs. Absent: distended - Extremities Exam Extremities exam: Present: warm, radial pulses palpable and symetrical. Absent : calf tenderness, cyanotic, pedal edema - Skin Skin exam: Present: dry, intact <Chevy Ham H - Last Filed: 04/05/16 10:33> Date of Encounter: 04/05/16 Procedures/tests Complete & Pending: Procedures Performed prior 72 hours Category Date Time Status US gall bladder [US] Stat Exams 04/02/16 18:44 Completed MRCP [MR abdomen wo con] [MR] Routine MRI 04/03/16 10:58 Completed US abd pelvis doppler [US] Routine Ultrasound 04/03/16 19:00 Completed Date of admission: 04/03/16 15:09 Primary care physician: PCP NO Consults: 04/03/16 10:26 Consult to Hospitalist [CONS] Routine Consulting Provider: Hospitalist Dominickgee Reason for Consult: acute hepatitis Time Notified: 10:20 Call Completed: Yes 04/04/16 09:59 Consult to Enrollment Eligibility Representative [CONS] Routine Reason for SW Consult: financial needs - Patient Status Functional capacity at discharge: independent ambulation Overall status at discharge: patient is progressing back to baseline - Diet and Activity Activity: increase activity as tolerated Diet: low fat, low cholesterol Hospital course: Ms. Henry is a 35 year old female - Time Spent with Patient Total time spent providing and/or coordinating discharge services: - Constitutional Vitals: Temp Pulse Resp BP Pulse Ox 98.0 F 66 16 115/79 96 04/05/16 07:33 04/05/16 07:33 04/05/16 07:33 04/05/16 07:33 04/05/16 07:33 - Attending Attestation acute hepatitis C , improving FOllow up with GI within the next 2 months to consider hep C treatment. Genotype pending I examined this patient and my medical decision-making was reviewed with the HAND COUNTER/PA/Advanced Practice Nurse/Resident Physician. I agree with the documented findings, disposition and treatment plan as described except to the extent set forth below.
[2016-04-05 11:00] VITALS: BP 115/80
[2016-04-08 10:42] LABS: Cytomegalovirus DNA (PCR) NOT DETECTED
== END 2016-04-05 12:03 | disposition home or self-care (01) ==
LOC: 3ANU
PROVIDERS: ADMIT Surgery; ATTEND Internal Medicine